=== PATIENT | male | born 1975 | race Two or more races ===

== ENCOUNTER 2019-12-22 18:13 | Emergency (ER) | payer SELFPAY ==
[~2019-12-22] VITALS: Ht 188 cm; Wt 93.0 kg
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
--- NOTE | 2019-12-22 18:26 | NUR ---
AT BEDSIDE FOR EVAL.
--- NOTE | 2019-12-22 18:36 | NUR ---
BLOW DOWN OPERATOR AT BEDSIDE FOR XRAY.
--- NOTE | 2019-12-22 18:56 | NUR ---
AT BEDSIDE FOR SUTURING.
--- NOTE | 2019-12-22 19:11 | NUR ---
EMT AT BEDSIDE FOR WOUND CARE.
--- NOTE | 2019-12-22 19:15 | NUR ---
Patient discharged to home in stable condition. Written and verbal after care instructions given. Patient verbalizes understanding of instruction. Pt ambulated with steady gait. vss.
[2019-12-22 19:16] VITALS: BP 124/68
== END 2019-12-22 19:17 | disposition home or self-care (01) ==
LOC: ER 18:20
DX: S61.411A Laceration without foreign body of right hand, initial encounter (principal); W22.8XXA Striking against or struck by other objects, initial encounter; Y93.89 Activity, other specified; Y92.89 Other specified places as the place of occurrence of the external cause; Y99.8 Other external cause status
CPT/HCPCS: 12002; 73130; 99283; A6403

== ENCOUNTER 2020-05-23 15:44 | Emergency (ER) | payer MEDICAID ==
[~2020-05-23] VITALS: Ht 188 cm; Wt 99.8 kg
[2020-05-23 15:52] VITALS: BP 133/99
--- NOTE | 2020-05-23 16:53 | NUR ---
BETI WRAP APPLIED ON THE R ANKLE.
[2020-05-23] MEDS ORDERED: NAPR-1164 PO (16:58)
[2020-05-23] MEDS ORDERED: IBUPROFEN 600 MG TABLET PO ONE (17:00)
--- NOTE | 2020-05-23 17:01 | NUR ---
Patient discharged to home in stable condition. Written and verbal after care instructions given. Patient verbalizes understanding of instruction.
[2020-05-23] MEDS ORDERED: IBUPROFEN 600 MG TABLET ONE (17:04)
== END 2020-05-23 17:03 | disposition home or self-care (01) ==
LOC: ER 15:48
DX: M25.571 Pain in right ankle and joints of right foot (principal); Z60.2 Problems related to living alone; X50.1XXA Overexertion from prolonged static or awkward postures, initial encounter; Y93.89 Activity, other specified; Y92.89 Other specified places as the place of occurrence of the external cause; Y99.8 Other external cause status
CPT/HCPCS: 73610-TC

== ENCOUNTER 2022-09-21 06:43 | Emergency (ER) | payer MEDICAID, OTHER ==
[~2022-09-21] VITALS: Ht 188 cm; Wt 96.2 kg
[~2022-09-21 06:43] MED LIST: NAPR-1164 PO
--- NOTE | 2022-09-21 06:56 | NUR ---
BIBSELF FOR SWELLING OF KNEE X 2DAYS. PT ON RA, TOLERATING WELL. NO S/SX OF ACUTE RESPI DISTRESS NOTED AT THIS TIME. NO SOB. BREATHING IS EVEN AND UNLABORED. AWAITING MD ORDERS.
--- NOTE | 2022-09-21 07:06 | NUR ---
RADIOLOGIST AT BEDSIDE.
[2022-09-21 07:26] LABS: BASOPHILS # (AUTO) 0.1 K/uL (0.0-0.2); BASOPHILS % (AUTO) 0.9 % (0.0-2.0); EOSINOPHILS % (AUTO) 0.9 % (0.0-6.0); HEMATOCRIT 43 % (39-51); HEMOGLOBIN 14.3 g/dL (13.5-17.5); LYMPHOCYTES # (AUTO) 1.8 K/uL (0.8-4.8); LYMPHOCYTES % (AUTO) 14.5 % (20.0-44.0); MEAN CORPUSCULAR HGB CONC 33 g/dl (31.0-36.0); MEAN CORPUSCULAR VOLUME 92 fL (80-96); MONOCYTES # (AUTO) 1.3 K/uL (0.1-1.30); MONOCYTES % (AUTO) 10.9 % (2.0-12.0); NEUTROPHILS # (AUTO) 8.8 K/uL (1.8-8.9); NEUTROPHILS % (AUTO) 72.8 % (43.0-81.0); PLATELET COUNT (AUTO) 213 K/uL (150-450); RED BLOOD CELL COUNT(AUTO) 4.68 MIL/uL (4.5-6.0); WHITE BLOOD COUNT (AUTO) 12.1 K/uL (4.3-11.0)
[2022-09-21] MEDS ORDERED: LIDOCAINE 1% INJ 50 ML MDV IJ ONE (07:45)
[2022-09-21 07:50] LABS: CALCIUM, SERUM 8.9 mg/dL (8.5-10.1); CREATININE 1.2 mg/dL (0.6-1.3); POTASSIUM 4.1 mmol/L (3.5-5.1)
--- NOTE | 2022-09-21 07:54 | NUR ---
CONSENT SECURED FOR ARTHROCENTESIS BY DR HOROWITZ.
--- NOTE | 2022-09-21 07:56 | NUR ---
DR HOROWITZ AT BEDSIDE
--- NOTE | 2022-09-21 08:47 | NUR ---
Patient does not wish to proceed with medical care recommended by Dr. HOROWITZ. Patient given information related to possible complications, up to and including , which could occur as a result of leaving the hospital at this time. Patient verbalizes understanding of risks involved due to leaving against medical advice. Patient has signed AMA form.
[2022-09-21] MEDS ORDERED: SULF1TAB48 PO (08:57)
[2022-09-21] MEDS ORDERED: CEPH500C2 PO (08:57)
[2022-09-21] MEDS ORDERED: IBUP-1955 PO (08:57)
[2022-09-21] MEDS ORDERED: CEFTRIAXONE 1 G VIAL IM ONE (09:00)
[2022-09-21] MEDS ORDERED: SULFAMETH/TRIMETH 800/160 MG 1 UDTAB TABLET PO ONE (09:00)
[2022-09-21] MEDS ORDERED: IBUPROFEN 600 MG TABLET PO ONE (09:00)
--- NOTE | 2022-09-21 09:01 | NUR ---
PATIENT WALKED HIMSELF OUT THE ER . STEADY GAIT USING CRUTCHES.
--- NOTE | 2022-09-21 09:01 | NUR ---
ALEXEY PROVIDED , INSTRUCTION GIVEN
[2022-09-21 09:06] VITALS: BP 151/99
== END 2022-09-21 09:07 | disposition left against medical advice (07) ==
LOC: ER 06:46
DX: M25.562 Pain in left knee (principal); Z60.2 Problems related to living alone; Z79.899 Other long term (current) drug therapy
CPT/HCPCS: 99284; 20610; 73564; 85025; 80048; 36415; 85730; 76882; J3490; A6403

== ENCOUNTER 2025-01-19 04:33 | Emergency (ER) | payer MEDICAID ==
[~2025-01-19] VITALS: Ht 188 cm; Wt 95.3 kg
[~2025-01-19 04:33] MED LIST changes: +CEPH500C2 PO; +IBUP-1955 PO; +IBUP-1957 PO; +SULF1TAB48 PO
[2025-01-19] MEDS ORDERED: IBUP-1957 PO (05:28)
[2025-01-19] MEDS ORDERED: AMOX-430 PO (05:28)
[2025-01-19] MEDS ORDERED: ACET-73 PO (05:28)
[2025-01-19] MEDS ORDERED: HYDROCODONE/APAP 5/325MG TABLET ONE (05:33)
[2025-01-19] MEDS ORDERED: AMOX/CLAVULANATE 875 MG TABLET ONE (05:33)
[2025-01-19] MEDS: AMOX/CLAVULANATE 875 MG TABLET PO ONE (05:35)
[2025-01-19] MEDS: HYDROCODONE/APAP 5/325MG TABLET PO ONE (05:35)
[2025-01-19 05:41] VITALS: BP 165/104; TEMP 98.2; O2SAT 98
== END 2025-01-19 05:41 | disposition home or self-care (01) ==
LOC: ER 04:33
DX: K04.7 Periapical abscess without sinus (principal); M10.9 Gout, unspecified; Z79.1 Long term (current) use of non-steroidal anti-inflammatories (NSAID); Z60.2 Problems related to living alone